=== PATIENT | male | born 1985 | race African-American/Black ===

== ENCOUNTER 2017-06-01 10:02 | Inpatient (IN) | payer OTHER ==
[~2017-06-01] VITALS: Ht 188 cm; Wt 176.9 kg
--- NOTE | ~2017-06-01 | HC ---
[facility] [place] [address] CONSULTATION Name: ELEONORA HIGH Room #: 417-I ADM IN M.R.#: [id number] Admission: 06/01/17 Attend Phys: Shayne Smith DO Discharge: Date of : 85 Report #: [id number] THIS REPORT FOR: //name// CC: [facility] physician/PCP Shayne Smith REASON FOR CONSULTATION: Acute kidney injury. REASON FOR PRESENTATION: Left big toe pain. HISTORY OF PRESENT ILLNESS: A 31-year-old with no known significant past medical history who presented complaining of left big toe and ankle pain that started about a week ago. This was associated with inability to walk on the left foot. He also stated that this has been warmer than the usual. He denies any remote history of gout. He has been taking nonsteroidal anti-inflammatory medications every 4-6 hours for the last few days. He received some doses of Toradol and indomethacin. On presentation, his creatinine was 1.0 and this had risen to 2.7 mandating a Nephrology consultation. He is not aware of any previous history of hypertension. He is also not aware of any remote history of diabetes mellitus. He was found to have also an elevated white blood cell count with high C-reactive protein and high ESR. There is no peripheral eosinophilia. He is being treated appropriately. I am being asked to evaluate him because of the acute kidney injury. PAST SURGICAL HISTORY: Hernia repair. PAST MEDICAL HISTORY: None, including no gout. FAMILY HISTORY: Mom has hypertension. SOCIAL HISTORY: He denies drug or alcohol abuse. He used to work for [employer]. ALLERGIES: No known drug allergies. REVIEW OF SYSTEMS: GENERAL: No fever or chills. CARDIOVASCULAR: No chest pain or palpitation. PULMONARY: No cough or hemoptysis. GASTROINTESTINAL: No nausea or vomiting. GENITOURINARY: No frequency, no urgency. MUSCULOSKELETAL: As per the history of present illness. PHYSICAL EXAMINATION: GENERAL: He is alert, oriented, in no apparent distress. VITAL SIGNS: Blood pressure initially was 125/85. He is afebrile. HEAD AND NECK: No jugular venous distention, no bruit, no thyromegaly. [facility] [address] [place] [address] CONSULTATION Name: ELEONORA HIGH Room #: 417-I ADM IN .R.#: [id number] Admission: 06/01/17 Attend Phys: Shayne Smith DO Discharge: Date of : 85 Report #: [id number] CHEST: Clear to auscultation bilaterally. CARDIOVASCULAR: No rub detected. ABDOMEN: Soft, nontender with no hepatosplenomegaly. Obese. LOWER EXTREMITIES: Tender left big toe and left ankle. LABORATORY VALUES: Reviewed. Creatinine is 2.7. Uric acid is 10.1. C-reactive protein is high at 71. White blood cell count is elevated at 20,000. Imaging including his ankle MRI and x-rays were reviewed. ASSESSMENT, IMPRESSION, PLAN: 1. Acute kidney injury. 2. Leukocytosis. 3. Left ankle and big toe pain of indeterminate source. Likely gout. 4. Acute kidney injury is in all likelihood to the nonsteroidal anti-inflammatory medications he has received. I will hold all of those. Send acute kidney injury workup. 5. Obtain an ultrasound of both kidneys. 6. Infectious Diseases evaluation. 7. Orthopedic evaluation. 8. Given the elevation of his white blood cells and after running out septic joint, can use steroids for his gout flare-up if this is confirmed to be gout. 9. Expect his renal function to improve in the next few days; however, with his morbid obesity, there might be underlying kidney issues that will need to be addressed and we will readdress once we obtain his urine studies and urine protein to creatinine. By: [id number] Helena Guzman MD /nt
[~2017-06-01 10:02] MED LIST: IBUPROFEN 600600 M1 PO; NAPROSYN500 MG PO
[2017-06-01 10:03] VITALS: BP 147/78
[2017-06-01 11:09] LABS: HEMATOCRIT 41.8 % (42.0-52.0); HEMOGLOBIN 13.2 gm/dL (14.0-18.0); MCH 24.8 pg (26.0-34.0); MCHC 31.4 g/dL (28.0-37.0); MCV 78.8 fL (80.0-100.0); PLATELET COUNT 337 thou/uL (150-400); RBC 5.31 mil/uL (4.50-6.00); RDW 13.8 % (10.5-14.5); WBC 18.1 thou/uL (4.0-11.0)
[2017-06-01 11:13] LABS: MANUAL DIFF YES
[2017-06-01 11:14] LABS: CALCIUM 9.7 mg/dL (8.5-10.1); POTASSIUM 3.9 mmol/L (3.5-5.1)
[2017-06-01 11:18] LABS: URIC ACID* 10.1 mg/dL (2.6-7.2)
[2017-06-01 11:34] LABS: ABSOLUTE NEUTROPHILS 13.9 thou/uL (1.4-8.2); PLATELET ESTIMATE NORMAL; TOTAL CELL COUNT 100
[2017-06-01 13:13] VITALS: BP 133/82
[2017-06-01 13:35] VITALS: BP 127/82
[2017-06-01 13:50] VITALS: BP 148/91
[2017-06-01 15:16] VITALS: BP 137/86
[2017-06-01 20:00] VITALS: BP 135/79
[2017-06-02 04:00] VITALS: BP 157/91
[2017-06-02 06:27] LABS: HEMATOCRIT 40.9 % (42.0-52.0); HEMOGLOBIN 12.7 gm/dL (14.0-18.0); MCH 24.5 pg (26.0-34.0); PLATELET COUNT 360 thou/uL (150-400); RBC 5.18 mil/uL (4.50-6.00); RDW 13.8 % (10.5-14.5); WBC 21.9 thou/uL (4.0-11.0)
[2017-06-02 06:28] LABS: MANUAL DIFF YES
[2017-06-02 06:33] LABS: CALCIUM 9.1 mg/dL (8.5-10.1); CREATININE 1.8 mg/dL (0.7-1.3)
[2017-06-02 07:10] VITALS: BP 150/96
[2017-06-02 09:12] LABS: ABSOLUTE NEUTROPHILS 19.7 thou/uL (1.4-8.2); TOTAL CELL COUNT 100
[2017-06-02 09:13] LABS: ANISOCYTOSIS SLIGHT
[2017-06-02 15:15] VITALS: BP 134/96
[2017-06-02 20:00] VITALS: BP 144/85
[2017-06-03 03:57] LABS: HEMATOCRIT 40.3 % (42.0-52.0); HEMOGLOBIN 12.6 gm/dL (14.0-18.0); MCH 24.4 pg (26.0-34.0); MCHC 31.1 g/dL (28.0-37.0); MCV 78.3 fL (80.0-100.0); PLATELET COUNT 326 thou/uL (150-400); RBC 5.15 mil/uL (4.50-6.00); RDW 13.6 % (10.5-14.5)
[2017-06-03 03:59] LABS: MANUAL DIFF YES
[2017-06-03 04:13] LABS: CALCIUM 8.4 mg/dL (8.5-10.1); CREATININE 2.7 mg/dL (0.7-1.3); POTASSIUM 4.3 mmol/L (3.5-5.1)
[2017-06-03 04:26] VITALS: BP 125/85
[2017-06-03 05:54] LABS: ABSOLUTE NEUTROPHILS 14.2 thou/uL (1.4-8.2); ATYPICAL LYMPHS 1 %; TOTAL CELL COUNT 100
[2017-06-03 07:23] VITALS: BP 181/103
[2017-06-03 13:05] LABS: URINE BILIRUBIN NEGATIVE (Negative); URINE BLOOD TRACE (Negative); URINE COLOR YELLOW; URINE GLUCOSE-RANDOM* NEGATIVE (Negative); URINE KETONES NEGATIVE (Negative); URINE NITRITE NEGATIVE (Negative); URINE PROTEIN (DIPSTICK) NEGATIVE (Negative); URINE UROBILINOGEN 0.2 E.U./dl (0.2-1.0)
[2017-06-03 13:18] LABS: URINE CREATININE-RANDOM* 204.8 mg/dL; URINE PROTEIN-RANDOM* 24.7 mg/dL (<11.9)
[2017-06-03 16:47] VITALS: BP 157/92
[2017-06-03 18:56] VITALS: BP 171/104
[2017-06-03 22:08] LABS: HIV ANTIBODY Non Reactive (Non Reactive)
[2017-06-04 00:02] VITALS: BP 159/113
[2017-06-04 00:30] VITALS: BP 128/82
[2017-06-04 03:25] VITALS: BP 147/90
[2017-06-04 06:15] LABS: HEMATOCRIT 39.4 % (42.0-52.0); HEMOGLOBIN 12.2 gm/dL (14.0-18.0); MCH 24.3 pg (26.0-34.0); MCHC 30.9 g/dL (28.0-37.0); MCV 78.9 fL (80.0-100.0); PLATELET COUNT 317 thou/uL (150-400); RDW 13.8 % (10.5-14.5); WBC 19.8 thou/uL (4.0-11.0)
[2017-06-04 06:17] LABS: MANUAL DIFF YES
[2017-06-04 06:30] LABS: ALBUMIN 2.9 g/dL (3.4-5.0); CALCIUM 8.7 mg/dL (8.5-10.1); CREATININE 2.8 mg/dL (0.7-1.3); PHOSPHORUS 5.8 mg/dL (2.5-4.9); POTASSIUM 4.5 mmol/L (3.5-5.1)
[2017-06-04 07:15] VITALS: BP 145/86
[2017-06-04 09:26] LABS: TOTAL CELL COUNT 100
[2017-06-04 09:30] LABS: ANISOCYTOSIS SLIGHT
[2017-06-04 16:08] VITALS: BP 159/106
[2017-06-04 20:00] VITALS: BP 152/97
[2017-06-05 04:30] VITALS: BP 169/113
[2017-06-05 06:06] LABS: ALBUMIN 2.7 g/dL (3.4-5.0); CALCIUM 8.7 mg/dL (8.5-10.1); PHOSPHORUS 4.9 mg/dL (2.5-4.9); POTASSIUM 4.3 mmol/L (3.5-5.1)
[2017-06-05 07:10] VITALS: BP 161/111
[2017-06-05 08:11] LABS: HEMATOCRIT 38.6 % (42.0-52.0); HEMOGLOBIN 11.7 gm/dL (14.0-18.0); MCH 23.8 pg (26.0-34.0); MCHC 30.4 g/dL (28.0-37.0); MCV 78.2 fL (80.0-100.0); PLATELET COUNT 296 thou/uL (150-400); RBC 4.93 mil/uL (4.50-6.00); RDW 13.7 % (10.5-14.5); WBC 20.3 thou/uL (4.0-11.0)
[2017-06-05 08:26] LABS: MANUAL DIFF YES
[2017-06-05 10:05] LABS: ABSOLUTE NEUTROPHILS 17.3 thou/uL (1.4-8.2); ANISOCYTOSIS SLIGHT; METAMYELOCYTES 2 %; TOTAL CELL COUNT 100
[2017-06-05 12:35] LABS: CALCIUM 8.9 mg/dL (8.5-10.1); CREATININE 2.9 mg/dL (0.7-1.3); POTASSIUM 4.6 mmol/L (3.5-5.1)
[2017-06-05 15:45] VITALS: BP 161/110
[2017-06-05 19:15] VITALS: BP 173/104
[2017-06-05 23:47] VITALS: BP 182/118
[2017-06-06 03:00] VITALS: BP 163/102
[2017-06-06 04:25] LABS: HEMATOCRIT 39.5 % (42.0-52.0); HEMOGLOBIN 12.2 gm/dL (14.0-18.0); MCH 24.3 pg (26.0-34.0); MCHC 30.9 g/dL (28.0-37.0); MCV 78.4 fL (80.0-100.0); PLATELET COUNT 328 thou/uL (150-400); RBC 5.04 mil/uL (4.50-6.00); RDW 13.5 % (10.5-14.5); WBC 23.7 thou/uL (4.0-11.0)
[2017-06-06 04:31] LABS: CALCIUM 8.9 mg/dL (8.5-10.1); POTASSIUM 4.2 mmol/L (3.5-5.1)
[2017-06-06 04:38] LABS: MANUAL DIFF YES
[2017-06-06 05:46] LABS: ABSOLUTE NEUTROPHILS 19.2 thou/uL (1.4-8.2); MICROCYTES SLIGHT; TOTAL CELL COUNT 100
[2017-06-06] MEDS ORDERED: NORCO 5-325 TA1 EACH PO (08:10)
[2017-06-06 08:37] VITALS: BP 163/102
[2017-06-06] MEDS ORDERED: COLCHICINE0.6 MG PO (08:38)
[2017-06-06 08:39] VITALS: BP 163/102
[2017-06-06 08:43] VITALS: BP 176/109
[2017-06-08 09:12] LABS: PLATELET COUNT PATH REVIEW Appear normal. (()); RBC Note: (()); WBC Note: (())
== END 2017-06-06 11:34 | disposition home or self-care (01) | DRG 683 ==
LOC: ER 10:02 → 4E 12:16 → EROBS 12:16 → 4E 13:53 → ENTRNSPT 06-06 11:14 → 4E 06-06 11:34
PROVIDERS: Family Medicine; Hospitalist; Internal Medicine Nephrology; Physician Assistant; Specialist
DX: N17.9 Acute kidney failure, unspecified (principal); M00.9 Pyogenic arthritis, unspecified; M19.072 Primary osteoarthritis, left ankle and foot; F17.210 Nicotine dependence, cigarettes, uncomplicated; I10 Essential (primary) hypertension; E11.9 Type 2 diabetes mellitus without complications; M10.071 Idiopathic gout, right ankle and foot; D72.829 Elevated white blood cell count, unspecified; Z82.49 Family history of ischemic heart disease and other diseases of the circulatory system; Z79.1 Long term (current) use of non-steroidal anti-inflammatories (NSAID); Z79.899 Other long term (current) drug therapy
CPT/HCPCS: 10783

== ENCOUNTER 2017-09-21 13:22 | Emergency (ER) | payer OTHER ==
[~2017-09-21] VITALS: Ht 188 cm; Wt 172.4 kg
[~2017-09-21 13:22] MED LIST changes: +COLCHICINE0.6 MG PO; +NORCO 5-325 TA1 EACH PO
[2017-09-21] MEDS ORDERED: NORCO 10-325 T1 EACH PO ×3 (15:45→15:58)
[2017-09-21] MEDS ORDERED: PREDNISONE 20 M20 M1 PO ×3 (15:45→15:58)
[2017-09-21] MEDS ORDERED: COLCHICINE0.6 MG PO ×3 (15:45→15:58)
[2017-09-21 15:59] VITALS: BP 132/73
== END 2017-09-21 16:25 | disposition home or self-care (01) ==
LOC: ER 13:22
DX: M10.9 Gout, unspecified (principal); M77.9 Enthesopathy, unspecified; F17.210 Nicotine dependence, cigarettes, uncomplicated; F10.99 Alcohol use, unspecified with unspecified alcohol-induced disorder

== ENCOUNTER 2018-08-01 11:57 | Emergency (ER) | payer OTHER ==
[~2018-08-01] VITALS: Ht 185.4 cm; Wt 169.2 kg
[~2018-08-01 11:57] MED LIST changes: +NORCO 10-325 T1 EACH PO; +PREDNISONE 20 M20 M1 PO
[2018-08-01] MEDS ORDERED: MOBIC15 MG PO (12:27)
[2018-08-01] MEDS ORDERED: NORCO 5-325 TA1 EACH PO (12:27)
[2018-08-01 12:35] VITALS: BP 140/85
== END 2018-08-01 12:35 | disposition home or self-care (01) ==
LOC: ER 11:57
DX: M77.02 Medial epicondylitis, left elbow (principal); F17.210 Nicotine dependence, cigarettes, uncomplicated; M10.9 Gout, unspecified

== ENCOUNTER 2018-10-30 09:47 | Inpatient (IN) | payer OTHER ==
[~2018-10-30] VITALS: Ht 188 cm; Wt 197.8 kg
[~2018-10-30 09:47] MED LIST changes: +MOBIC15 MG PO
[2018-10-30 09:48] VITALS: BP 150/98
[2018-10-30 10:33] LABS: BASOPHILS 0.8 % (0.0-2.0); EOSINOPHILS 0.7 % (0.0-3.0); HEMATOCRIT 38.6 % (42.0-52.0); HEMOGLOBIN 12.6 gm/dL (14.0-18.0); LYMPHOCYTES 14.5 % (24.0-44.0); MCH 28.2 pg (26.0-34.0); MCHC 32.6 g/dL (28.0-37.0); MCV 86.6 fL (80.0-100.0); MONOCYTES 4.6 % (1.0-8.0); PLATELET COUNT 413 thou/uL (150-400); POLYS 79.4 % (36.0-66.0); RBC 4.46 mil/uL (4.50-6.00); WBC 18.9 thou/uL (4.0-11.0)
[2018-10-30 10:37] LABS: CALCIUM 9.2 mg/dL (8.5-10.1); POTASSIUM 4.3 mmol/L (3.5-5.1)
[2018-10-30 10:43] LABS: ALBUMIN 3.1 g/dL (3.4-5.0); TOTAL BILIRUBIN 0.6 mg/dL (<0.1-1.0); TOTAL PROTEIN 6.8 g/dL (6.4-8.2)
[2018-10-30 12:03] LABS: URINE BILIRUBIN NEGATIVE (Negative); URINE BLOOD NEGATIVE (Negative); URINE CLARITY SL CLOUDY; URINE COLOR YELLOW; URINE GLUCOSE-RANDOM* NEGATIVE (Negative); URINE KETONES NEGATIVE (Negative); URINE LEUKOCYTES NEGATIVE (Negative); URINE NITRITE POSITIVE (Negative); URINE PROTEIN (DIPSTICK) NEGATIVE (Negative); URINE SPECIFIC GRAVITY <= 1.005 (1.005-1.035); URINE UROBILINOGEN 0.2 E.U./dl (0.2-1.0)
[2018-10-30 12:18] LABS: SQUAMOUS 4-10 Moderate /LPF (0-3); URINE WBC 6-15 Few /HPF (0-5)
[2018-10-30 12:19] LABS: BACTERIA >30 Many /HPF (None Seen); CASTS None Seen /LPF (None Seen); CRYSTALS None Seen /LPF (None Seen); URINE RBC None Seen /HPF (0-2)
[2018-10-30 14:15] VITALS: BP 154/98
--- NOTE | 2018-10-30 17:35 | NUR ---
PT ARRIVED TO UNIT FROM [facility] IN STABLE CONDITION AT 16:30. ADMISSION ASSESSMENT COMPLETED. A&O,X4. C/O RUQ ABD TIGHTNESS, DENIES PAIN AND N/V. LAST BM TODAY, BUT NOT NORMAL CONSISTENCY. DENIES DIABETES, FSBS 75. SKIN INTACT, DRY CRACKED HEELS NOTED. HX DRINKING, NOT EXHIBITING SIGNS OF ALCOHOL WITHDRAWL. PT STEADY GAIT, BRP. WILL CONTINUE TO MONITOR.
[2018-10-30 19:59] VITALS: BP 149/109
--- NOTE | 2018-10-31 04:50 | NUR ---
Assumed pt care at 1900. Pt A/OX4,denies pain on assessment rather reports a feeling of discomfort on RUQ triggered more after eating and lying down. No c/o N/V.Pt is on a clear liquid diet and adhering to it,IVF infusing via right hand without any problems. Reports had a BM at beginning of the shift. Pt is up ad dario/IV pole. Encouraged to call for help as needed. Resting quietly with no distress noted,will continue to monitor pt.
[2018-10-31 05:10] VITALS: BP 149/104
[2018-10-31 05:42] LABS: HEMATOCRIT 35.3 % (42.0-52.0); HEMOGLOBIN 11.4 gm/dL (14.0-18.0); MCH 28.3 pg (26.0-34.0); MCHC 32.2 g/dL (28.0-37.0); MCV 87.9 fL (80.0-100.0); RBC 4.02 mil/uL (4.50-6.00); RDW 15.1 % (10.5-14.5); WBC 15.8 thou/uL (4.0-11.0)
[2018-10-31 07:51] VITALS: BP 155/99
[2018-10-31] MEDS ORDERED: LEVAQUIN 750 M750 MG PO (09:54)
[2018-10-31] MEDS ORDERED: ALLOPURINOL 10100 M3 PO (09:55)
[2018-10-31] MEDS ORDERED: NORVASC10 MG PO (09:59)
[2018-10-31 10:29] VITALS: BP 155/99
--- NOTE | 2018-10-31 11:13 | NUR ---
DC INSTRUCTIONS GIVEN TO PT. PT VERBALIZED UNDERSTANDING, WAITING FOR TRANSPORT.
== END 2018-10-31 12:08 | disposition home or self-care (01) | DRG 872 ==
LOC: ER 09:47 → EROBS 13:12 → 4E 14:46 → ENTRNSPT 10-31 11:36 → EDTRNSPTSTS 10-31 11:39 → 4E 10-31 12:08 → CMPTRNSPT 10-31 12:27
PROVIDERS: Emergency Medicine; Nurse Practitioner Family; ADMIT Hospitalist
DX: A41.9 Sepsis, unspecified organism (principal); N10 Acute pyelonephritis; Z68.43 Body mass index [BMI] 50.0-59.9, adult; M10.9 Gout, unspecified; R65.20 Severe sepsis without septic shock; E66.9 Obesity, unspecified; F10.20 Alcohol dependence, uncomplicated; Z79.899 Other long term (current) drug therapy
CPT/HCPCS: 10183

== ENCOUNTER 2019-12-06 10:54 | Emergency (ER) | payer BC, OTHER ==
[~2019-12-06] VITALS: Ht 190.5 cm; Wt 147.4 kg
[~2019-12-06 10:54] MED LIST changes: +ALLOPURINOL 10100 M3 PO; +LEVAQUIN 750 M750 MG PO; +NORVASC10 MG PO
[2019-12-06 10:57] VITALS: BP 166/95
== END 2019-12-06 12:17 | disposition home or self-care (01) ==
LOC: ER 10:54
DX: S61.412A Laceration without foreign body of left hand, initial encounter (principal); F17.210 Nicotine dependence, cigarettes, uncomplicated; W45.8XXA Other foreign body or object entering through skin, initial encounter; Y93.89 Activity, other specified; Y92.89 Other specified places as the place of occurrence of the external cause; Y99.8 Other external cause status

== ENCOUNTER 2020-03-11 08:44 | Emergency (ER) | payer OTHER ==
[~2020-03-11] VITALS: Ht 188 cm; Wt 172.4 kg
[2020-03-11] MEDS ORDERED: TRIMETHOPRIM /P10 M1 OPHTHALMIC (10:07)
[2020-03-11 10:30] VITALS: BP 124/82
== END 2020-03-11 10:31 | disposition home or self-care (01) ==
LOC: ER 08:44
DX: T16.1XXA Foreign body in right ear, initial encounter (principal); F17.210 Nicotine dependence, cigarettes, uncomplicated; X58.XXXA Exposure to other specified factors, initial encounter; Y93.89 Activity, other specified; Y92.89 Other specified places as the place of occurrence of the external cause; Y99.8 Other external cause status

== ENCOUNTER 2020-04-02 23:58 | Emergency (ER) | payer OTHER ==
[~2020-04-02] VITALS: Ht 188 cm; Wt 170.1 kg
[~2020-04-02 23:58] MED LIST changes: +TRIMETHOPRIM /P10 M1 OPHTHALMIC
[2020-04-03] MEDS ORDERED: ULTRAM 50MG TAB50 MG PO (04:04)
[2020-04-03 05:12] VITALS: BP 168/92
== END 2020-04-03 05:13 | disposition home or self-care (01) ==
LOC: ER 23:58
DX: M10.061 Idiopathic gout, right knee (principal); F17.210 Nicotine dependence, cigarettes, uncomplicated

== ENCOUNTER 2020-04-08 21:18 | Emergency (ER) | payer OTHER ==
[~2020-04-08] VITALS: Ht 188 cm; Wt 170.1 kg
--- NOTE | ~2020-04-08 | EMS ---
[place] [address] EMS Patient Care Report Name: ELEONORA HIGH Room #: DEP CARISA Luna#: [id number] Admission: 04/08/20 Attend Phys: Discharge: 04/08/20 Date of : 85 Report #: [id number] THIS REPORT FOR: //name// Report Transmitted: 04/09/2020 05:37 EMS Care Summary [place], [place]/[facility] Incident [id number] @ 04/08/2020 20:43 Incident Location [address] [place] [address] Patient ELEONORA HIGH Male, 34 Years 1985 Patient Address [address] [place] [address] Patient History Gout, Patient Allergies No known allergies, Patient Medications Tramadol, Chief Complaint right knee pain from gout Disposition Transported No Lights/[place] Dispatch Reason Sick Person Transported To [facility] Narrative Called to the scene for a sick. Upon arrival, pt was IRWIN x 3 sitting on his bed. He c/o right knee pain from a gout flare up. No trauma reported. Pt assisted to the EMS cot and loaded into the ambulance w/o incident. Vitals obtained. En route: no changes. Vitals repeated. RR to [facility]. Arrived: [place] [address] EMS Patient Care Report Name: ELEONORA HIGH Room #: DEP Carter.#: [id number] Admission: 04/08/20 Attend Phys: Discharge: 04/08/20 Date of : 85 Report #: [id number] taken to ER #2 and moved to their bed w/o incident. Pt care & report to ER staff. Initial Vitals @21:01P: 132,SpO2: 93, @21:05P: 131,R: 16,Pain: 10/10,GCS: 15,CO: 2,SpO2: 98,Revised Trauma: 12, @21:01P: 120,R: 16,BP: 162/84,Pain: 10/10,GCS: 15,SpO2: 94,Revised Trauma: 12, Assessments @20:50MENTAL:Person Oriented,Time Oriented,Event Oriented,Place Oriented,SKIN:HEENT:LUNG SOUNDS:ABDOMEN:PELVIS//GI:EXTREMITIES:Right Leg: LAURA,PULSE:NEURO: Impression Extremity Pain Procedures @20:50ALS AssessmentResponse: UnchangedSucceeded@20:59StretcherResponse: Unchanged Timeline 20:41,Call Received 20:41,Dispatch Notified 20:43,Dispatched 20:45,En Route 20:49,On Scene 20:50,At Patient 20:50,ALS Assessment,Response: UnchangedSucceeded, 20:59,Stretcher,Response: Unchanged 21:01,BP: / M,PULSE: 132,RR: R,SPO2: 93 Ox,ETCO2: ,BG: ,PAIN: ,GCS: , 21:01,BP: 162/84 M,PULSE: 120,RR: 16 R,SPO2: 94 Ox,ETCO2: ,BG: ,PAIN: 10,GCS: 15, 21:01,Depart Scene 21:05,BP: 160/ M,PULSE: 131,RR: 16 R,SPO2: 98 Ox,ETCO2: ,BG: ,PAIN: 10,GCS: 15, 21:12,At Destination 21:31,Call Closed Disclaimer v1.1 Copyright 2020 [employer] This EMS Care Summary contains data elements from the applicable legal record (which may be displayed differently). It is designed to provide pertinent information for the following purposes: continuity of care, clinical quality, and state data reporting. The complete legal record is available to ED staff and administrators of the receiving hospital in [employer]'s Patient Tracker. All data is provided "as is."
[~2020-04-08 21:18] MED LIST changes: +ULTRAM 50MG TAB50 MG PO
[2020-04-08 21:55] LABS: HEMATOCRIT 44.2 % (42.0-52.0); HEMOGLOBIN 14.1 gm/dL (14.0-18.0); MCV 81.5 fL (80.0-100.0); PLATELET COUNT 394 thou/uL (150-400); RBC 5.42 mil/uL (4.50-6.00); RDW 13.5 % (10.5-14.5); WBC 24.3 thou/uL (4.0-11.0)
[2020-04-08 22:15] LABS: CALCIUM 9.1 mg/dL (8.5-10.1); POTASSIUM 3.7 mmol/L (3.5-5.1)
[2020-04-08 22:18] LABS: ALBUMIN 3.1 g/dL (3.4-5.0); TOTAL BILIRUBIN 0.8 mg/dL (0.2-1.0); TOTAL PROTEIN 7.9 g/dL (6.4-8.2)
[2020-04-08 22:25] LABS: ABSOLUTE NEUTROPHILS 20.9 thou/uL (1.4-8.2); ANISOCYTOSIS 1+; LARGE PLATELETS RARE; POLYCHROMASIA SLIGHT
[2020-04-08] MEDS ORDERED: MITIGARE0.6 MG PO (22:39)
[2020-04-08] MEDS ORDERED: PERCOCET 5-3251 EACH PO (22:39)
[2020-04-08 22:54] VITALS: BP 190/111
== END 2020-04-08 23:02 | disposition home or self-care (01) ==
LOC: ER 21:18
PROVIDERS: Emergency Medicine
DX: M10.9 Gout, unspecified (principal); F17.210 Nicotine dependence, cigarettes, uncomplicated; Z79.899 Other long term (current) drug therapy

== ENCOUNTER 2020-05-01 11:30 | Emergency (ER) | payer OTHER ==
[~2020-05-01] VITALS: Ht 188 cm; Wt 170.1 kg
[~2020-05-01 11:30] MED LIST changes: +MITIGARE0.6 MG PO; +PERCOCET 5-3251 EACH PO
[2020-05-01] MEDS ORDERED: PERCOCET 5-3251 EACH PO (12:43)
[2020-05-01] MEDS ORDERED: MITIGARE0.6 MG PO (12:43)
[2020-05-01 12:54] VITALS: BP 156/109
== END 2020-05-01 12:57 | disposition home or self-care (01) ==
LOC: ER 11:30
DX: M10.9 Gout, unspecified (principal); F17.210 Nicotine dependence, cigarettes, uncomplicated; Z79.899 Other long term (current) drug therapy